=== PATIENT | female | born 1950 | race Caucasian/White ===

== ENCOUNTER → 2016-08-24 | Outpatient (CLI) | payer OTHER ==
[~2016-08-24] MED LIST: AMOX875T PO; ASPI81TA28 PO; ATOR10TA88 PO; BISO5TAB3 PO; LISI-461 PO
[2016-08-24 16:00] LABS: ALT/SGPT 28 U/L (12-78); BLOOD UREA NITROGEN 18 mg/dl (7-18); BUN/CREATININE RATIO 31.8 (10-20); CALCIUM 9.4 mg/dl (8.5-10.1); CARBON DIOXIDE 25 mmol/L (21-32); CREATININE 0.56 mg/dl (0.60-1.20); GLUCOSE 76 mg/dl (70-99)
[2016-08-24 16:56] LABS: CHLORIDE 108 mmol/L (98-107); POTASSIUM 3.9 mmol/L (3.5-5.1); SODIUM 145 mmol/L (136-145)
[2016-08-24 17:02] LABS: ALKALINE PHOSPHATASE 90 U/L (45-117); AST/SGOT 27 U/L (15-37)
== END | disposition home or self-care (01) ==
LOC: C.LAB 14:23
PROVIDERS: ATTEND Family Medicine
DX: E78.2 Mixed hyperlipidemia (principal)

== ENCOUNTER → 2017-01-03 | Outpatient (CLI) | payer OTHER ==
[2017-01-03 18:34] LABS: BASO % 0.5 %; BASO ABS # 0.04 K/uL (0-0.2); COMPLETE YES; EOS % 1.9 %; HEMATOCRIT 38.6 % (37-47); IG% 0.3 %; LYMPH ABS # 3.65 K/uL (1.2-3.4); MEAN CELL VOLUME 89.8 fL (80-100); MEAN CORPUSCULAR HEMOGLOBIN 29.8 pg (25-34); MEAN CORPUSCULAR HGB CONC 33.2 g/dl (32-36); MEAN PLATELET VOLUME 9.7 fL (7.4-10.4); MONO % 8.6 %; NEUT % 39.7 %; PLATELET COUNT 310 K/uL (130-400); WHITE BLOOD COUNT 7.45 K/uL (4.8-10.8)
[2017-01-03 19:16] LABS: ALT/SGPT 23 U/L (12-78); BLOOD UREA NITROGEN 13 mg/dl (7-18); BUN/CREATININE RATIO 25.6 (10-20); CALCIUM 9.3 mg/dl (8.5-10.1); CARBON DIOXIDE 26 mmol/L (21-32); CHLORIDE 109 mmol/L (98-107); CHOLESTEROL 143 mg/dl (0-200); CREATININE 0.52 mg/dl (0.60-1.20); GLUCOSE 89 mg/dl (70-99); POTASSIUM 3.9 mmol/L (3.5-5.1); SODIUM 143 mmol/L (136-145); TRIGLYCERIDES 139 mg/dl (0-150); VERY LOW DENSITY LIPOPROT CALC 28 mg/dl
[2017-01-03 19:20] LABS: ALKALINE PHOSPHATASE 84 U/L (45-117); AST/SGOT 25 U/L (15-37); HDL CHOLESTEROL 48 mg/dl; LDL CHOLESTEROL CALCULATED 67 mg/dl
== END | disposition home or self-care (01) ==
LOC: C.LABSPEC 17:22
PROVIDERS: ATTEND Family Medicine
DX: I10 Essential (primary) hypertension (principal)

== ENCOUNTER 2017-01-09 02:07 | Emergency (ER) | payer OTHER ==
[~2017-01-09] VITALS: Ht 152.4 cm; Wt 68.8 kg
[2017-01-09 02:20] VITALS: TEMP 36.8; Ht 152.4 cm; Wt 68.8 kg
[2017-01-09] MEDS ORDERED: AMOX875T PO (02:39)
[2017-01-09] MEDS ORDERED: RABIES IMMUNE GLOBULIN (HUMAN) 150 INTER.UNIT/ML 2 ML VIAL IM. ONE (02:45)
[2017-01-09] MEDS ORDERED: RABIES VACCINE (IMOVAX) HUMAN DIPL CELL 2.5 INTER.UNIT/ML SYR IM. ONE (02:45)
[2017-01-09 03:42] VITALS: BP 152/86; PULSE 62; O2SAT 96
--- NOTE | 2017-01-09 07:21 | EMERGENCY ROOM VISIT NOTE ---
History First contact with patient: 02:18 Chief Complaint: RABIES VACCINE Stated Complaint: RABIES VACCINE History of Present Illness The patient is a 66 year old female who presents to the Emergency Room for rabies postexposure prophylaxis. The patient family was attacked by a easley during daylight hours today. The family dog protect the family from the Easley, and the patient came into contact with the Easley's saliva. The patient was not directly bitten. She has not had fever or chills. She does not have other complaints. This episode has been previously discussed with the [facility] and the recommendation is the patient received the rabies post exposure prophylaxis series. Review of Systems More than 6 systems were reviewed and otherwise negative with the exception of history of present illness. Past Medical/Surgical History No pertinent chronic medical disease Family History No pertinent family history Social History Smoking Status: Never Smoker Housing Status: lives with family Current/Historical Medications Scheduled Amoxicillin & Pot Clavulanate (Augmentin 875-125 mg), 1 TAB PO BID Aspirin (Aspirin Ec), 81 MG PO DAILY Atorvastatin (Lipitor), 10 MG PO DAILY Bisoprolol Fumarate (Zebeta), 5 MG PO DAILY Lisinopril (Lisinopril), 10 MG PO DAILY Allergies Coded Allergies: No Known Allergies (Unverified , 01/09/17) Physical Exam Vital Signs Date Time Temp Pulse Resp B/P (MAP) Pulse Ox O2 Delivery O2 Flow Rate FiO2 01/09/17 03:42 62 20 152/86 96 01/09/17 02:20 36.8 59 20 152/86 96 Pain Rating (0-10): 0 Physical Exam VITALS: Vitals are noted on the nurse's note and reviewed by myself. Vital signs stable. GENERAL: Well-developed, well-nourished, white female, who is in no acute distress and resting comfortably. Patient is cooperative with the examination. HEART: Regular rate and rhythm without murmurs gallops or rubs. LUNGS: Clear to auscultation bilaterally without wheezes, rales or rhonchi. No retractions or accessory muscle use. SKIN: The skin was without rashes, erythema, edema, or bruising. Capillary reflex less than 2 seconds. Medical Decision & Procedures Medications Administered Medications (Trade) Dose Ordered Sig/Deuce Route Start Time Stop Time Status Last Admin Dose Admin Rabies Vaccine Human Diploid Cell (Imovax Rabies) 2.5 interunit ONCE ONCE IM. 01/09/17 02:45 01/09/17 02:46 DC 01/09/17 03:29 2.5 INTERUNIT Rabies Immune Globulin (Imogam Rabies Inj) 1,376 interunit ONCE ONCE IM. 01/09/17 02:45 01/09/17 02:46 DC 01/09/17 03:30 1,376 INTERUNIT ED Course Physical exam and history were performed. Nursing notes and EMR were reviewed. Patient appears to have a need for rabies postexposure prophylaxis. The patient was given Imovax and rabies IgG here in the department. She was monitored for greater than 20 minutes without any deterioration of her symptoms. Overall the patient appears well for discharge home. She was given discharge instructions as below and will continue the rabies series as indicated. The chart was completed utilizing [employer] Speech Voice Recognition Software. Grammatical errors, random word insertions, pronoun errors, and incomplete sentences are an occasional consequence of this system due to software limitations, ambient noise, and hardware issues. Any formal questions or concerns about the content, text, or information contained within the body of this dictation should be directly addressed to the provider for clarification. . Medical Decision Differential diagnosis includes, but is not limited to: Need for rabies post exposure prophylaxis, and others Impression Primary Impression: Need for post exposure prophylaxis for rabies Departure Information Dispostion Home / Self-Care Condition GOOD Forms WORK / SCHOOL INSTRUCTIONS, HOME CARE DOCUMENTATION FORM, IMPORTANT VISIT INFORMATION Patient Instructions Formerly [facility], [facility]–1983 Additional Instructions You were seen and evaluated today on an emergency basis only. This is not a substitute for, or an effort to provide, complete comprehensive medical care. It is not possible to recognize and treat all injuries or illnesses in a single emergency department visit. For this reason it is recommended that you followup in the emergency department as follows: 01/12/2017 01/16/2017 01/23/2017 You will require additional immunizations on these days. You are welcome to return to the emergency department anytime with new, worsening, or concerning symptoms.
[2017-01-23] MEDS ORDERED: ASPI81TA28 PO (02:39)
[2017-01-23] MEDS ORDERED: BISO5TAB3 PO (02:39)
[2017-01-23] MEDS ORDERED: ATOR10TA88 PO (02:39)
[2017-01-23] MEDS ORDERED: LISI-461 PO (02:39)
== END 2017-01-09 03:43 | disposition home or self-care (01) ==
LOC: C.EDB 02:08
DX: Z20.3 Contact with and (suspected) exposure to rabies (principal); Z79.899 Other long term (current) drug therapy; Z79.82 Long term (current) use of aspirin

== ENCOUNTER 2017-01-12 13:02 | Emergency (ER) | payer OTHER ==
[~2017-01-12] VITALS: Ht 152.4 cm; Wt 68.6 kg
[~2017-01-12 13:02] MED LIST changes: -ASPI81TA28 PO; -ATOR10TA88 PO; -BISO5TAB3 PO; -LISI-461 PO
[2017-01-12 13:04] VITALS: TEMP 36.8; Ht 152.4 cm; Wt 68.6 kg
[2017-01-12] MEDS ORDERED: RABIES VACCINE (IMOVAX) HUMAN DIPL CELL 2.5 INTER.UNIT/ML SYR IM. ONE (13:15)
--- NOTE | 2017-01-12 13:21 | EMERGENCY ROOM VISIT NOTE ---
ED Visit Note First contact with patient: 13:06 CHIEF COMPLAINT: Rabies prophylaxis HISTORY OF PRESENT ILLNESS: This 66 year old female patient presents to the emergency department ambulatory for their second rabies shot. The patient has not had any complications from the previous injections. They deny any other complaints. REVIEW OF SYSTEMS: A 6 system review of systems was completed with positives and pertinent negatives listed in the HPI. ALLERGIES: NKDA MEDICATIONS: Unchanged from previous PMH: Unchanged from previous visit. PHYSICAL EXAM: Vital Signs: Reviewed Nurse's notes, vital signs stable. GENERAL : This is a 66 year old female, in no acute distress, well-developed, well- nourished. HEAD: Atraumatic, without temporal or scalp tenderness. EYES: PERRLA, EOMI, no discharge or injection. SKIN: Normal. NEUROLOGICAL: Alert and cooperative. Sensory and motor functions grossly intact. EMERGENCY DEPARTMENT COURSE: I examined the patient. The patient was given Imovax 1ml IM. The patient was observed for 20 minutes with no reaction. The patient was discharged home in stable condition. DIAGNOSIS: Rabies prophylaxis DISCHARGE INSTRUCTIONS: Continue vaccination schedule as directed. Return for any complications. Current/Historical Medications Scheduled Amoxicillin & Pot Clavulanate (Augmentin 875-125 mg), 1 TAB PO BID Aspirin (Aspirin Ec), 81 MG PO DAILY Atorvastatin (Lipitor), 10 MG PO DAILY Bisoprolol Fumarate (Zebeta), 5 MG PO DAILY Lisinopril (Lisinopril), 10 MG PO DAILY Allergies Coded Allergies: No Known Allergies (Unverified , 01/12/17) Vital Signs Date Time Temp Pulse Resp B/P (MAP) Pulse Ox O2 Delivery O2 Flow Rate FiO2 01/12/17 13:53 61 131/71 96 01/12/17 13:04 36.8 66 18 128/80 94 Room Air Medications Administered Medications (Trade) Dose Ordered Sig/Deuce Route Start Time Stop Time Status Last Admin Dose Admin Rabies Vaccine Human Diploid Cell (Imovax Rabies) 2.5 interunit ONCE ONCE IM. 01/12/17 13:15 01/12/17 13:17 DC 01/12/17 13:33 2.5 INTERUNIT Departure Information Impression Primary Impression: Need for post exposure prophylaxis for rabies Dispostion Home / Self-Care Condition GOOD Referrals No Doctor, Assigned (PCP) Patient Instructions [facility] Additional Instructions Continue vaccination schedule as directed. Return for any complications.
[2017-01-12 13:53] VITALS: BP 131/71; PULSE 61; O2SAT 96
[2017-01-23] MEDS ORDERED: LISI-461 PO (02:39)
[2017-01-23] MEDS ORDERED: ASPI81TA28 PO (02:39)
[2017-01-23] MEDS ORDERED: ATOR10TA88 PO (02:39)
[2017-01-23] MEDS ORDERED: BISO5TAB3 PO (02:39)
== END 2017-01-12 13:53 | disposition home or self-care (01) ==
LOC: C.EDD 13:06
DX: Z20.3 Contact with and (suspected) exposure to rabies (principal); Z23 Encounter for immunization

== ENCOUNTER 2017-01-16 17:00 | Emergency (ER) | payer OTHER ==
[~2017-01-16] VITALS: Ht 162.6 cm; Wt 68.8 kg
[2017-01-16 17:01] VITALS: BP 113/76; PULSE 67; TEMP 36.6; O2SAT 97; Ht 162.6 cm; Wt 68.8 kg
[2017-01-16] MEDS ORDERED: RABIES VACCINE (IMOVAX) HUMAN DIPL CELL 2.5 INTER.UNIT/ML SYR IM. ONE (17:15)
--- NOTE | 2017-01-16 17:20 | EMERGENCY ROOM VISIT NOTE ---
ED Visit Note First contact with patient: 17:07 CHIEF COMPLAINT: Rabies prophylaxis HISTORY OF PRESENT ILLNESS: This 66-year-old patient presents to the emergency department ambulatory for their third rabies shot. The patient has not had any complications from the previous injections. They deny any other complaints. REVIEW OF SYSTEMS: A 6 system review of systems was completed with positives and pertinent negatives listed in the HPI. ALLERGIES: NKDA MEDICATIONS: Unchanged from previous PMH: Unchanged from previous visit. PHYSICAL EXAM: Vital Signs: Reviewed Nurse's notes, vital signs stable. GENERAL : This is a 66-year-old female, in no acute distress, well-developed, well- nourished. HEAD: Atraumatic, without temporal or scalp tenderness. EYES: PERRLA, EOMI, no discharge or injection. SKIN: Normal. NEUROLOGICAL: Alert and cooperative. Sensory and motor functions grossly intact. EMERGENCY DEPARTMENT COURSE: I examined the patient. The patient was given Imovax 1ml IM. The patient was observed for 20 minutes with no reaction. The patient was discharged home in stable condition. DIAGNOSIS: Rabies prophylaxis DISCHARGE INSTRUCTIONS: Continue vaccination schedule as directed. Return for any complications. Current/Historical Medications Scheduled Amoxicillin & Pot Clavulanate (Augmentin 875-125 mg), 1 TAB PO BID Aspirin (Aspirin Ec), 81 MG PO DAILY Atorvastatin (Lipitor), 10 MG PO DAILY Bisoprolol Fumarate (Zebeta), 5 MG PO DAILY Lisinopril (Lisinopril), 10 MG PO DAILY Allergies Coded Allergies: No Known Allergies (Unverified , 01/16/17) Vital Signs Date Time Temp Pulse Resp B/P (MAP) Pulse Ox O2 Delivery O2 Flow Rate FiO2 01/16/17 17:01 36.6 67 18 113/76 97 Room Air Medications Administered Medications (Trade) Dose Ordered Sig/Deuce Route Start Time Stop Time Status Last Admin Dose Admin Rabies Vaccine Human Diploid Cell (Imovax Rabies) 2.5 interunit ONCE ONCE IM. 01/16/17 17:15 01/16/17 17:16 DC 01/16/17 17:36 2.5 INTERUNIT Departure Information Impression Primary Impression: Need for post exposure prophylaxis for rabies Dispostion Home / Self-Care Condition GOOD Referrals No Doctor, Assigned (PCP) Patient Instructions [facility] Additional Instructions Return in 7 days for your last shot
[2017-01-23] MEDS ORDERED: ASPI81TA28 PO (02:39)
[2017-01-23] MEDS ORDERED: LISI-461 PO (02:39)
[2017-01-23] MEDS ORDERED: BISO5TAB3 PO (02:39)
[2017-01-23] MEDS ORDERED: ATOR10TA88 PO (02:39)
== END 2017-01-16 17:49 | disposition home or self-care (01) ==
LOC: C.EDB 17:00 → C.EDD 17:49
DX: Z20.3 Contact with and (suspected) exposure to rabies (principal); Z23 Encounter for immunization; Z79.82 Long term (current) use of aspirin; Z79.899 Other long term (current) drug therapy

== ENCOUNTER 2017-01-23 17:19 | Emergency (ER) | payer OTHER ==
[~2017-01-23] VITALS: Ht 152.4 cm; Wt 36.4 kg
[~2017-01-23 17:19] MED LIST changes: +ASPI81TA28 PO; +ATOR10TA88 PO; +BISO5TAB3 PO; +LISI-461 PO
[2017-01-23 17:24] VITALS: BP 127/79; TEMP 36.8; Ht 152.4 cm; Wt 36.4 kg
[2017-01-23] MEDS ORDERED: RABIES VACCINE (IMOVAX) HUMAN DIPL CELL 2.5 INTER.UNIT/ML SYR IM. ONE (17:30)
[2017-01-23 18:56] VITALS: PULSE 67; O2SAT 93
--- NOTE | 2017-01-23 19:09 | EMERGENCY ROOM VISIT NOTE ---
History First contact with patient: 17:28 Chief Complaint: RABIES VACCINE REPEAT VISIT Stated Complaint: 4TH RABIES VACCINE History of Present Illness The patient is a 66 year old female who presents to the Emergency Room for a fourth and final Imovax injection. The patient has had no adverse reactions to the prior injections. Review of Systems 6 system review was performed and was negative except for pertinent positives and negatives as indicated in history of present illness Past Medical/Surgical History Well documented on previous visits Family History Unremarkable Social History Smoking Status: Never Smoker Housing Status: lives with family Current/Historical Medications Scheduled Aspirin (Aspirin Ec), 81 MG PO DAILY Atorvastatin (Lipitor), 10 MG PO DAILY Bisoprolol Fumarate (Zebeta), 5 MG PO DAILY Lisinopril (Lisinopril), 10 MG PO DAILY Physical Exam Vital Signs Date Time Temp Pulse Resp B/P (MAP) Pulse Ox O2 Delivery O2 Flow Rate FiO2 01/23/17 18:56 67 93 01/23/17 17:24 36.8 66 17 127/79 97 Room Air Pain Rating (0-10): 0 Physical Exam CONSTITUTIONAL: Healthy and well nourished. HEENT: Normocephalic, atraumatic. Pupils equal, round and reactive. NECK: Full active range of motion without discomfort. INTEGUMENTARY: No rash or other significant dermatologic conditions noted. NEUROLOGIC: No focal neurologic deficits noted. Medical Decision & Procedures Medications Administered Medications (Trade) Dose Ordered Sig/Deuce Route Start Time Stop Time Status Last Admin Dose Admin Rabies Vaccine Human Diploid Cell (Imovax Rabies) 2.5 interunit ONCE ONCE IM. 01/23/17 17:30 01/23/17 17:31 DC 01/23/17 18:05 2.5 INTERUNIT ED Course Imovax was administered IM. The patient was instructed that if she has any further potential rabies exposure in the future, she should advise her healthcare provider that she has already undergone this rabies immunization series. The patient was happy with plan of care, and denied any pain at the time of discharge. Medical Decision Impression Primary Impression: Need for post exposure prophylaxis for rabies Departure Information Dispostion Home / Self-Care Referrals No Doctor, Assigned (PCP) Forms HOME CARE DOCUMENTATION FORM, IMPORTANT VISIT INFORMATION Patient Instructions My [facility] Additional Instructions If you have any potential rabies exposure in the future, advise your healthcare provider that you have undergone the complete rabies immunization series.
== END 2017-01-23 18:57 | disposition home or self-care (01) ==
LOC: C.EDB 17:20 → C.EDD 18:57
DX: Z20.3 Contact with and (suspected) exposure to rabies (principal); Z23 Encounter for immunization; Z79.82 Long term (current) use of aspirin; Z79.899 Other long term (current) drug therapy

== ENCOUNTER → 2017-02-05 | Outpatient (CLI) | payer OTHER ==
[~2017-02-05] MED LIST changes: -AMOX875T PO
[2017-02-05 18:32] LABS: HEMATOCRIT 38.1 % (37-47); MEAN CELL VOLUME 90.5 fL (80-100); MEAN CORPUSCULAR HEMOGLOBIN 30.4 pg (25-34); MEAN CORPUSCULAR HGB CONC 33.6 g/dl (32-36); MEAN PLATELET VOLUME 10.3 fL (7.4-10.4); PLATELET COUNT 296 K/uL (130-400); RED BLOOD COUNT 4.21 M/uL (4.2-5.4)
[2017-02-05 18:40] LABS: ALT/SGPT 26 U/L (12-78); BLOOD UREA NITROGEN 17 mg/dl (7-18); BUN/CREATININE RATIO 24.2 (10-20); CALCIUM 9.7 mg/dl (8.5-10.1); CARBON DIOXIDE 28 mmol/L (21-32); CHLORIDE 107 mmol/L (98-107); CREATININE 0.69 mg/dl (0.60-1.20); GLUCOSE 95 mg/dl (70-99); POTASSIUM 4.1 mmol/L (3.5-5.1); SODIUM 141 mmol/L (136-145)
[2017-02-05 18:43] LABS: ALKALINE PHOSPHATASE 91 U/L (45-117); AST/SGOT 25 U/L (15-37)
[2017-02-05 19:43] LABS: COMPLETE YES; EOSINOPHIL % 2.7 %; LYMPH ABS # 1.97 K/uL (1.2-3.4); LYMPHOCYTE % 28.6 %; NEUTROPHILS % 37.5 %; VARIANT LYM ABS # 1.48 K/uL; VARIANT LYMPHOCYTE % 21.4 %
== END | disposition home or self-care (01) ==
LOC: C.LABSPEC 10:48
PROVIDERS: ATTEND Family Medicine
DX: M54.5 Low back pain (principal)

== ENCOUNTER → 2017-02-21 | Outpatient (CLI) | payer OTHER ==
[2017-02-21 18:01] LABS: BASO % 0.6 %; BASO ABS # 0.05 K/uL (0-0.2); COMPLETE YES; EOS % 1.5 %; HEMATOCRIT 38.1 % (37-47); IG% 0.1 %; LYMPH % 44.2 %; LYMPH ABS # 3.46 K/uL (1.2-3.4); MEAN CELL VOLUME 91.1 fL (80-100); MEAN CORPUSCULAR HEMOGLOBIN 31.6 pg (25-34); MEAN CORPUSCULAR HGB CONC 34.6 g/dl (32-36); MEAN PLATELET VOLUME 9.7 fL (7.4-10.4); MONO % 8.3 %; NEUT % 45.3 %; PLATELET COUNT 276 K/uL (130-400); RED BLOOD COUNT 4.18 M/uL (4.2-5.4); WHITE BLOOD COUNT 7.82 K/uL (4.8-10.8)
[2017-02-21 18:11] LABS: ALT/SGPT 26 U/L (12-78); AST/SGOT 29 U/L (15-37); BLOOD UREA NITROGEN 14 mg/dl (7-18); BUN/CREATININE RATIO 25.1 (10-20); CALCIUM 9.7 mg/dl (8.5-10.1); CARBON DIOXIDE 28 mmol/L (21-32); CHLORIDE 109 mmol/L (98-107); CREATININE 0.57 mg/dl (0.60-1.20); GLUCOSE 84 mg/dl (70-99); SODIUM 142 mmol/L (136-145)
[2017-02-21 18:16] LABS: ALKALINE PHOSPHATASE 88 U/L (45-117)
== END | disposition home or self-care (01) ==
LOC: C.LABSPEC 11:03
PROVIDERS: ATTEND Family Medicine
DX: I10 Essential (primary) hypertension (principal)

== ENCOUNTER 2024-03-22 12:42 | Inpatient (IN) ==
[2024-03-22 13:26] LABS: Basophils # (auto) 0.04 K/uL (0.00-0.20); Basophils % (auto) 0.5 %; Eosinophils # (auto) 0.03 K/uL (0.00-0.50); Eosinophils % (auto) 0.4 %; Hemoglobin 12.6 g/dl (12.0-16.0); Immature Granulocytes # (auto) 0.02 K/uL (0.01-0.20); Immature Granulocytes % (auto) 0.3 %; Mean Corpuscular Hemoglobin 30.4 pg (25.0-34.0); Mean Corpuscular Hgb Conc 34.1 g/dL (32.0-36.0); Mean Corpuscular Volume 89.4 fL (80.0-100.0); Mean Platelet Volume 9.5 fL (9.4-12.4); Monocytes # (auto) 0.48 K/uL (0.11-0.59); Monocytes % (auto) 6.1 %; Neutrophils # (auto) 5.05 K/uL (1.40-6.50); Neutrophils % (auto) 63.7 %; Platelet Count 260 K/uL (130-400); RDW Coefficient of Variation 12.8 % (11.5-14.5); RDW Standard Deviation 41.8 fL (36.4-46.3); Red Blood Count 4.14 M/uL (4.20-5.40); White Blood Count 7.92 K/ul (4.8-10.8)
[2024-03-22 13:34] LABS: Albumin Globulin Ratio 1.3 (0.9-2); Albumin Level 4.3 gm/dl (3.4-5.0); Bilirubin,Total 1.2 mg/dl (0.2-1.0); Calcium 9.6 mg/dl (8.6-10.3); Creatinine Clr Calc Pharmacy 74.4 ml/min; Est GFR (African American) 103.3 ml/min; Est GFR (Non-African American) 89.2 ml/min; Globulin 3.2 gm/dl (2.5-4.0); Potassium 3.8 mmol/L (3.5-5.1); Total Protein 7.5 gm/dl (6.0-8.3)
--- NOTE | 2024-03-22 14:17 | Emergency Department Note ---
Impression & Plan Colitis ADMIT ED Provider Note HPI: History obtained from patient and patient's son at the bedside. The patient is a 73-year-old female who presents the emergency department with chief complaint of diarrhea. Patient states that earlier this morning she developed some abdominal cramping and had several episodes of diarrhea. Later in the morning the patient had some bloody diarrhea. She discussed the symptoms with her son and he brought her to the ER to be assessed. Of note, the patient speaks primarily [place] and her son is serving as the bridal sales consultant. Patient currently does not have any abdominal pain. On arrival here to the ED the patient is hemodynamically stable, she otherwise appears to be in no acute distress. ROS: - Per HPI Differential Diagnosis: Acute colitis, viral gastroenteritis, ischemic colitis, diverticulitis flare, hemorrhagic diarrhea secondary to other pathogens, amongst other potential pathologies. *Outpatient medications and allergy history reviewed. PE: General: Alert HEENT: Normocephalic, trachea midline Eyes: Extraocular eye movement is intact, no scleral erythema Pulmonary: Clear to auscultation bilaterally, no wheezing Cardio: Regular rate and rhythm GI: Abdomen is soft to palpation : No suprapubic tenderness MSK: No evidence of trauma or malformation of the extremities, no edema Skin: No evidence of rash Neuro: Alert, no focal deficits Psychiatric: Cooperative INDEPENDENT INTERPRETATIONS: fws faculty assistant: (As interpreted by myself): - An order was placed for continuous cardiac monitoring - Patient was noted to be in sinus rhythm with a rate of 90 Interventions provided in ED: -IV fluid bolus, IV Zosyn Medical Decision Making: IV was established and lab work obtained, patient was placed on jack spinner. Lab work shows no leukocytosis, hemoglobin is stable at 12.6, platelet count is normal, CMP does not show any evidence of any critical findings, urinalysis shows 3+ blood but no obvious evidence of infection, will send for culture. Patient denies any dysuria. Viral panel testing was obtained for stool culture and is negative. CT imaging of the abdomen pelvis without contrast was obtained (patient has a contrast allergy) and that shows concern for possible ischemic colitis. Given this blood culture was drawn and the patient was started on IV Zosyn. Called stool testing at the bedside is positive. I discussed these findings with the patient and her son at the bedside, at this time given possible ischemic colitis admission was recommended and they are in agreement. Case was discussed with the on-call hospitalist, Dr. Kimbrough, and the patient was placed for admission in stable condition. Consultants/Discussions held with other healthcare providers: -Hospitalist, Dr. Kimbrough Disposition discussion held by myself with: -Patient and patient's son at the bedside Diagnosis: 1. Acute colitis 2. Occult positive stool 3. 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 Encounter for pre-operative examination Orthostatic hypotension hx-"has not happened at all recently" HTN (hypertension) (Acute) Medical History Aortic aneurysm "told it was small, only 5mm"; f/u PSH cardio HTN (hypertension) Orthostatic hypotension hx-"has not happened at all recently" Surgical History History of cataract surgery Family History Other Family history unknown Social History Smoking Status: Never smoker Second Hand Exposure: No; Do You Dip or Chew Tobacco: No; Hx Alcohol Use: No Hx Substance Use: No Preferred Language: [place] Communication Ability: Effective Communication Ability Comment: Requires hourly sign language interpreter Communication Tools: IPad and Language Line Set Up Mechanic Set Up Mechanic Required: Yes Beliefs That Will Affect Care: None marital status: / Current Living Situation: Family current occupational status: retired How many Children do You have: 1 Feels Safe at Home: Yes Assistive Devices: None Allergies Allergies Allergy/AdvReac Type Severity Reaction Status Date / Time Iodinated Contrast Media Allergy nausea and Verified 01/29/23 08:59 vomiting Home Meds Home Medications Medication Instructions Recorded Confirmed atorvastatin 10 mg tablet 10 mg PO HS 02/17/20 03/22/24 bisoprolol fumarate 5 mg tablet 5 mg PO QAM 02/17/20 03/22/24 lisinopril 10 mg tablet 10 mg PO HS 07/28/21 03/22/24 aspirin 81 mg capsule 81 mg PO DAILY 01/04/23 03/22/24 Results & Data (ED) Vital Signs Vital Signs - 24 hr 03/22/24 12:51 Temperature 36.7 C Temperature Source Temporal Artery Scan Pulse Rate 85 Respiratory Rate 20 Respiratory Effort / Characteristics Non-Labored Spontaneous Respiratory Depth Normal Blood Pressure 144/87 H Blood Pressure Mean 106 Pulse Oximetry 97 Oxygen Delivery Method Room Air Sepsis Recent Fever Within 48 Hours No Sepsis New/Unexplained Change in Mental Status N/A Sepsis Action Taken by Nursing No Action Required Laboratory Data 03/22/24 13:05 03/22/24 13:05 Lab Results 03/22/24 03/22/24 03/22/24 Range/Units 13:05 13:50 13:56 WBC 7.92 (4.8-10.8) K/ul RBC 4.14 L (4.20-5.40) M/uL Hgb 12.6 (12.0-16.0) g/dl Hct 37.0 (37.0-47.0) % MCV 89.4 (80.0-100.0) fL MCH 30.4 (25.0-34.0) pg MCHC 34.1 (32.0-36.0) g/dL RDW Std Deviation 41.8 (36.4-46.3) fL RDW Coeff of Bradley 12.8 (11.5-14.5) % Plt Count 260 (130-400) K/uL MPV 9.5 (9.4-12.4) fL Immature Gran % (Auto) 0.3 % Neut % (Auto) 63.7 % Lymph % (Auto) 29.0 % [place] % (Auto) 6.1 % Eos % (Auto) 0.4 % Baso % (Auto) 0.5 % Neut # (Auto) 5.05 (1.40-6.50) K/uL Lymph # (Auto) 2.30 (1.20-3.40) K/uL [place] # (Auto) 0.48 (0.11-0.59) K/uL Eos # (Auto) 0.03 (0.00-0.50) K/uL Baso # (Auto) 0.04 (0.00-0.20) K/uL Immature Gran # (Auto) 0.02 (0.01-0.20) K/uL Sodium 137 (136-145) mmol/L Potassium 3.8 (3.5-5.1) mmol/L Chloride 105 (98-107) mmol/L Carbon Dioxide 24 (21-32) mmol/L Anion Gap 8 (3-11) BUN 18 (6-23) mg/dl Creatinine 0.60 (0.6-1.2) mg/dl Est Cr Clr Drug Dosing 74.4 ml/min Est GFR ( Amer) 103.3 ml/min Est GFR (Non-Af Amer) 89.2 ml/min BUN/Creatinine Ratio 30.0 H (10-20) Glucose 104 H (70-99(Fasting)) mg/dl Calcium 9.6 (8.6-10.3) mg/dl Total Bilirubin 1.2 H (0.2-1.0) mg/dl AST 24 (13-39) U/L ALT 14 (7-52) U/L Alkaline Phosphatase 75 (34-104) U/L Total Protein 7.5 (6.0-8.3) gm/dl Albumin 4.3 (3.4-5.0) gm/dl Globulin 3.2 (2.5-4.0) gm/dl Albumin/Globulin Ratio 1.3 (0.9-2) Lipase 13 (11-82) U/L Urine Color Yellow Urine Appearance Clear (Clear) Urine pH 5.5 (4.5-7.5) Ur Specific [place] 1.011 (1.000-1.030) Urine Protein Negative (Negative) Urine Glucose (UA) Negative (Negative) Urine Ketones Negative (Negative) Urine Blood 3+ H (Negative) Urine Nitrite Negative (Negative) Urine Bilirubin Negative (Negative) Urine Urobilinogen Negative (Negative) Ur Leukocyte Esterase 1+ H (Negative) Urine WBC (Auto) 6-10 H (0-5) /hpf Urine RBC (Auto) >20 H (0-2) /hpf U Hyaline Cast (Auto) 0-2 (0-2) /lpf U Epithel Cells (Auto) 0-2 (0-2) /hpf Urine Bacteria (Auto) None Seen (None Seen) Stl C. cayetanensis PCR Not Detected (NotDetected) Stool Rotavirus A PCR Not Detected (NotDetected) Stl Adenov F 40/41 PCR Not Detected (NotDetected) Stool Astrovirus (PCR) Not Detected (NotDetected) Stool Campylobacter PCR Not Detected (NotDetected) Stl C. diff Tox B Gene Negative Cdiff Gene (Neg) Stool Cryptosporidium PCR Not Detected (NotDetected) Stl E.coli Shiga Tox PCR Not Detected (NotDetected) Stl Enterotoxigenic E PCR Not Detected (NotDetected) Stool EPEC (PCR) Not Detected (NotDetected) Stool EAEC (PCR) Not Detected (NotDetected) Stl E. histolytica PCR Not Detected (NotDetected) Stool Giardia Lamblia PCR Not Detected (NotDetected) Stool Salmonella PCR Not Detected (NotDetected) Stool Sapovirus (PCR) Not Detected (NotDetected) Stl P. shigelloides PCR Not Detected (NotDetected) Stl Shigella/EIEC PCR Not Detected (NotDetected) St Y.enterocolitica PCR Not Detected (NotDetected) Stool Vibrio (PCR) Not Detected (NotDetected) Stl Vibrio cholerae PCR Not Detected (NotDetected) Stl Norovirus GI/GII PCR Not Detected (NotDetected) Administered Medications Discontinued Medications Sodium Chloride (Nss) 1,000 mls @ 999 mls/hr IV .Q1H1M ONE Stop: 03/22/24 15:10 Last Admin: 03/22/24 14:38 Dose: 999 mls/hr Documented By: [facility] Imaging Data Radiologist's Impression: Abdomen/Pelvis CT 03/22/24 14:10 CT abd pelvis wo con CLINICAL HISTORY: bloody diarrhea TECHNIQUE: Helical axial images of the abdomen and pelvis were obtained. Automated dose lowering techniques and/or adjustment according to patient size were utilized for this exam. This exam was performed without intravenous contrast. CT DOSE: 1076.31 mGy.cm COMPARISON: None available at the time of this dictation. FINDINGS: Lower chest: No acute abnormality. Liver: Borderline hepatic steatosis. Gallbladder and biliary tree: No calcified gallstones. Normal caliber wall. No intra- or extrahepatic biliary ductal dilation. Pancreas: Unremarkable, no focal lesions. Spleen: Unremarkable. Adrenals: Unremarkable. Kidneys and ureters: Renal cysts are seen. Bladder: Unremarkable. Reproductive organs: Unremarkable. Bowel: There are numerous sigmoid diverticula. There is uniform thickening of the descending and sigmoid colonic owen. There is surrounding fat stranding. Lymph nodes Retroperitoneal: Unremarkable. Pelvic: Unremarkable. Mesenteric: Unremarkable. Peritoneum: There is mild vascular prominence about the descending and sigmoid colon without evidence of perforation or pneumoperitoneum. Vessels: Atherosclerotic calcifications are seen. Abdominal wall: Unremarkable. Bones: Degenerative changes in the visualized spine. IMPRESSION: Thickening of the descending colon may represent ischemic colitis in the inferior mesenteric artery distribution or infectious/inflammatory colitis. ACT 112: Negative or not required by law. Electronically signed by: Nolan Walton M.D. 03/22/2024 2:51 PM Discharge Plan Visit Data Chief Complaint: Diarrhea Stated Complaint: DIARRHEA, ABD PAIN ED Provider: Matthias Ni Discharge Problem: Colitis Forms Stand Alone Forms: My [facility] [place] [facility] Prescriptions Prescriptions: No Action atorvastatin 10 mg tablet 10 mg PO HS bisoprolol fumarate 5 mg tablet 5 mg PO QAM lisinopril 10 mg tablet 10 mg PO HS aspirin 81 mg Capsule 81 mg PO DAILY Rx Instructions: 03/22/21:otc unable to verify Referrals Referrals: Santana Mcnair [Primary Care Provider] -
[2024-03-22 14:21] LABS: Appearance Urine Clear (Clear); Bacteria Urine Automated None Seen (None Seen); Bilirubin Urine Negative (Negative); Blood Urine 3+ (Negative); Cast Urine Automated 0-2 /lpf (0-2); Color Urine Yellow; Epithelial Cell Urine Auto 0-2 /hpf (0-2); Glucose Urine UA Negative (Negative); Ketones Urine Negative (Negative); Leukocyte Esterase Urine 1+ (Negative); Nitrite Urine Negative (Negative); Protein Urine Negative (Negative); RBC Urine Automated >20 /hpf (0-2); Specific Gravity Urine 1.011 (1.000-1.030); Urobilinogen Urine Negative (Negative); pH Urine 5.5 (4.5-7.5)
[2024-03-22] MEDS: SODIUM CHLORIDE 0.9% 1,000 ML IV ONE (14:38)
--- NOTE | 2024-03-22 14:53 | CT Scan Report ---
CT abd pelvis wo con CLINICAL HISTORY: bloody diarrhea TECHNIQUE: Helical axial images of the abdomen and pelvis were obtained. Automated dose lowering tech niques and/or adjustment according to patient size were utilized for this exam. This exam was perfor med without intravenous contrast. CT DOSE: 1076.31 mGy.cm COMPARISON: None available at the time of this dictation. FINDINGS: Lower chest: No acute abnormality. Liver: Borderline hepatic steatosis. Gallbladder and biliary tree: No calcified gallstones. Normal caliber wall. No intra- or extrahepatic biliary ductal dilation. Pancreas: Unremarkable, no focal lesions. Spleen: Unremarkable. Adrenals: Unremarkable. Kidneys and ureters: Renal cysts are seen. Bladder: Unremarkable. Reproductive organs: Unremarkable. Bowel: There are numerous sigmoid diverticula. There is uniform thickening of the descending and sigm oid colonic owen. There is surrounding fat stranding. Lymph nodes Retroperitoneal: Unremarkable. Pelvic: Unremarkable. Mesenteric: Unremarkable. Peritoneum: There is mild vascular prominence about the descending and sigmoid colon without evidence of perforation or pneumoperitoneum. Vessels: Atherosclerotic calcifications are seen. Abdominal wall: Unremarkable. Bones: Degenerative changes in the visualized spine. IMPRESSION: Thickening of the descending colon may represent ischemic colitis in the inferior mesenteric artery d istribution or infectious/inflammatory colitis. ACT 112: Negative or not required by law. Electronically signed by: Nolan Walton M.D. 03/22/2024 2:51 PM
[2024-03-22 15:47] LABS: Adenovirus F 40/41 PCR Not Detected (NotDetected); Astrovirus PCR Not Detected (NotDetected); Campylobacter PCR Not Detected (NotDetected); Cryptosporidium PCR Not Detected (NotDetected); Cyclospora cayetanensis PCR Not Detected (NotDetected); Entamoeba histolytica PCR Not Detected (NotDetected); Enteroaggregative E.coli(EAEC) Not Detected (NotDetected); Enteropathogenic E.coli (EPEC) Not Detected (NotDetected); Enterotoxigenic E.coli (ETEC) Not Detected (NotDetected); Giardia lamblia PCR Not Detected (NotDetected); Norovirus GI/GII PCR Not Detected (NotDetected); Plesiomonas shigelloides PCR Not Detected (NotDetected); Rotavirus A PCR Not Detected (NotDetected); Salmonella PCR Not Detected (NotDetected); Sapovirus PCR Not Detected (NotDetected); Shiga-like Toxin E.coli (STEC) Not Detected (NotDetected); Shigella/Enteroinvasive E.coli Not Detected (NotDetected); Vibrio cholerae PCR Not Detected (NotDetected); Vibrio species PCR Not Detected (NotDetected); Yersinia enterocolitica PCR Not Detected (NotDetected)
[2024-03-22] MEDS: SODIUM CHLORIDE 0.9% 1,000 ML IV STA (16:02)
[2024-03-22] MEDS: PIPERACILLIN/TAZOBACTAM 4.5 GM/100 ML BAG IV ONE (16:02)
--- NOTE | 2024-03-22 17:07 | History & Physical Report ---
Date of Service March 22, 2024 Assessment & Plan (1) Colitis: Plan: - CTA/P: descending colon possibly representing ischemic colitis and inferior MCA distribution versus infectious/inflammatory colitis. CT was performed in ER without contrast due to patient reports of severe contrast allergy. Stool bio fire is negative. Patient attributes initial symptoms to suspecting that she had bad yogurt, cramping and diarrhea started with normal bowel movements and then included diarrhea that then continued with blood later in the day. Improved following fluids, pain resolved Empiric Zosyn continued for GI coverage Patient is not septic or hemodynamically unstable. She is not hypotensive or tachycardic. She does not have a leukocytosis. She is not anemic. BUN is not markedly elevated. Lactate minimally elevated, repeat pending. She has no high risk features on reassessment Will continue observation, supportive care with IV antibiotics and fluids. Anticoagulation not recommended at time of admission. GI consulted No history of colorectal cancer in patient or her family. She has never had a colonoscopy. She is not anemic or microcytic. (2) HTN (hypertension): Plan: Atorvastatin continued. Lisinopril held. (3) Aortic aneurysm: Plan: Followed as outpatient. No chest pain/shoulder blade pain. She reports that she had an echo of this around 6 months ago which was similar to her last echo and did not show enlargement. Last review of 2022 echo with dilated aortic root 3.8 cm, stable compared to prior Plan Stable issues: Pulmonary nodule: Follows with pulmonary as outpatient. Right midlung nodule density. No ongoing need for screening, low risk, no tobacco history. May continue to follow-up as needed DVT prophylaxis: SCDs, Lovenox held for hematochezia Disposition: Medical/surgical Diet: N.p.o. History of Present Illness Primary Care Provider: Santana Mcnair Lolis is a 73-year-old female with past medical history of hypertension, orthostatic hypotension, hearing loss, pulmonary nodules, and colitis who is exclusively Icelandic speaker with whom history is collected with the assistance of video translation services who presents with cramping and diarrhea of 1 day. Bloody diarrhea since yesterday. Lolis reports that she was in her usual state of health until earlier this afternoon. She reports she had cramping earlier this afternoon which she attributes to possibly eating some bad yogurt. After that she had a couple of episodes of diarrhea which had bright red blood. No melena. She denied chest pain, chest pressure, lightheadedness, dizziness, syncope, presyncope she does feel that the diarrhea is improving, last bowel movement had a little bit of bright red blood in it. Her pain has completely resolved after getting IV fluids. She is hungry and slightly thirsty. She has not had fever chills or sweats. She reports she has a past medical history of high blood pressure, high heart rate treated with aspirin/atorvastatin/isinopril/bisoprolol. She did take her bisoprolol this morning, she takes her other medications in the evening. She currently feels normal and at her usual state of health, but is concerned about the bleeding. She does not use tobacco products, and does not drink alcohol. Full code. No other questions at bedside. Allergies Allergy/AdvReac Type Severity Reaction Status Date / Time Iodinated Contrast Media Allergy nausea and Verified 01/29/23 08:59 vomiting Home Medications Medication Instructions Recorded Confirmed Type atorvastatin 10 mg tablet 10 mg PO HS 02/17/20 03/22/24 History bisoprolol fumarate 5 mg tablet 5 mg PO QA 02/17/20 03/22/24 History lisinopril 10 mg tablet 10 mg PO HS 07/28/21 03/22/24 History aspirin 81 mg capsule 81 mg PO DAILY 01/04/23 03/22/24 History Past Med/Surg History Problem List (Updated 03/22/24 @ 15:54 by Matthias Ni DO) Colitis (Acute) Dyspnea Pulmonary nodule Need for post exposure prophylaxis for rabies (Acute) Perforation of right tympanic membrane due to otitis media 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 Encounter for pre-operative examination Orthostatic hypotension hx-"has not happened at all recently" HTN (hypertension) (Acute) Medical History Aortic aneurysm "told it was small, only 5mm"; f/u PSH cardio HTN (hypertension) Orthostatic hypotension hx-"has not happened at all recently" Surgical History History of cataract surgery Family History Other Family history unknown Social History Smoking Status: Never smoker Second Hand Exposure: No; Do You Dip or Chew Tobacco: No; Hx Alcohol Use: No Hx Substance Use: No Preferred Language: Icelandic Communication Ability: Effective Communication Ability Comment: Requires tipple engineer Communication Tools: IPad and Language Line Farmworker Farmworker Required: Yes Beliefs That Will Affect Care: None marital status: / Current Living Situation: Family current occupational status: retired How many Children do You have: 1 Feels Safe at Home: Yes Assistive Devices: None Physical Exam Physical Exam: General: A&Ox3. NAD. Cooperative. HEENT: Atraumatic, normocephalic. Pulm: CTAB A&P. -wheezes, -rales, -rhonchi. Symmetrical chest rise. No increased work of breathing. No respiratory distress. Cardiac: RRR, -mrg. Radial pulses intact and symmetrical. Abdominal: Nontender, nondistended, soft. BS present. Results & Data Results & Data Vital Signs (Past 12 Hours) Vital Signs Temp Pulse Pulse Resp BP BP Pulse Ox 03/22/24 16:09 74 18 134/69 95 03/22/24 12:51 36.7 C 85 20 144/87 H 97 O2 Del Method 03/22/24 16:09 Room Air 03/22/24 12:51 Room Air PG Care Time/CCT Total # of Minutes Spent Total Time Spent with Patient: Total time spent is greater than 50% in coordination of care (as documented) at patient's floor/unit and/or counseling patient: Coding Level of Care Code 96593 INT INP/OBS CARE 2/55MIN Diagnoses Colitis K52.9 HTN (hypertension) I10 Hypertension type: unspecified Aortic aneurysm I71.9 (2) HTN (hypertension) Hypertension type: unspecified Qualified Code(s): I10 - Essential (primary) hypertension
[2024-03-22] MEDS ORDERED: ACETAMINOPHEN 325 MG TAB PO PRN (21:14)
[2024-03-22] MEDS: LACTATED RINGER'S 1,000 ML IV SCH (21:21)
[2024-03-22] MEDS: ATORVASTATIN 10 MG TAB PO SCH (22:17)
[2024-03-22] MEDS: PIPERACILLIN/TAZOBACTAM 4.5 GM/100 ML BAG IV SCH (22:18)
[2024-03-23 07:48] LABS: BUN Creatinine Ratio 21.8 (10-20); Calcium 8.7 mg/dl (8.6-10.3); Creatinine Clr Calc Pharmacy 81.6 ml/min; Est GFR (African American) 106.3 ml/min; Est GFR (Non-African American) 91.8 ml/min; Potassium 3.8 mmol/L (3.5-5.1)
[2024-03-23 07:51] LABS: Basophils # (auto) 0.03 K/uL (0.00-0.20); Basophils % (auto) 0.6 %; Eosinophils % (auto) 3.8 %; Hematocrit (blood only) 33.8 % (37.0-47.0); Immature Granulocytes # (auto) 0.02 K/uL (0.01-0.20); Immature Granulocytes % (auto) 0.4 %; Lymphocytes # (auto) 1.83 K/uL (1.20-3.40); Lymphocytes % (auto) 34.5 %; Mean Corpuscular Hemoglobin 29.6 pg (25.0-34.0); Mean Corpuscular Hgb Conc 32.5 g/dL (32.0-36.0); Mean Corpuscular Volume 91.1 fL (80.0-100.0); Mean Platelet Volume 9.3 fL (9.4-12.4); Monocytes # (auto) 0.56 K/uL (0.11-0.59); Monocytes % (auto) 10.6 %; Neutrophils # (auto) 2.66 K/uL (1.40-6.50); Neutrophils % (auto) 50.1 %; Platelet Count 194 K/uL (130-400); RDW Coefficient of Variation 12.9 % (11.5-14.5); RDW Standard Deviation 42.3 fL (36.4-46.3); Red Blood Count 3.71 M/uL (4.20-5.40)
[2024-03-23] MEDS: BISOPROLOL FUMARATE 5 MG TAB PO SCH (09:08)
--- NOTE | 2024-03-23 11:10 | Gastrointestinal Consultation ---
Date of Consultation March 23, 2024 Assessment & Plan (1) Ischemic colitis: -Continue IV Zosyn while admitted. -Continue to monitor for worsening bleeding or other GI symptoms. -If improving, consider colonoscopy in 6-8 weeks as an outpatient. Supervising Physician Co-Signing Physician Notes I saw and examined this patient with our nurse practitioner and agree with her assessment and plan. Clinical picture most consistent with ischemic colitis. Infectious etiology excluded by stool studies. Clinically improving which supports ischemic colitis. No abdominal pain or tenderness on exam today. Can advance to low residue diet as tolerated. Ultimate colonoscopy as an outpatient in 4 to 6 weeks unless symptoms recur during this admission. History of Present Illness Reason for Consultation: ? Ischemic colitis Attending Physician: Ruth Gold MD History of Present Illness Patient is a 73 yo Malawian-speaking female with PMH of HTN, orthostatic hypotension, hearing loss, pulmonary nodules who presented due to abdominal cramping and bloody diarrhea. Symptoms ongoing x 1 day. She was feeling well prior to this episode. She notes abdominal cramping that began early in the day and thought it was due to food. She notes that she had several subsequent episodes of BRBPR and diarrhea. She denies chest pain, melena, chest pain, dizziness, syncope. She notes that the pain resolved after IV fluids in the ED. She has never had a colonoscopy previously. H/H 11.0/33.8. BUN 12. Stool PCR negative. CT abdomen/pelvis read as follows: IMPRESSION: Thickening of the descending colon may represent ischemic colitis in the inferior mesenteric artery distribution or infectious/inflammatory colitis. Allergies Allergy/AdvReac Type Severity Reaction Status Date / Time Iodinated Contrast Media Allergy nausea and Verified 01/29/23 08:59 vomiting Home Medications Medication Instructions Recorded Confirmed Type atorvastatin 10 mg tablet 10 mg PO HS 02/17/20 03/22/24 History bisoprolol fumarate 5 mg tablet 5 mg PO QAM 02/17/20 03/22/24 History lisinopril 10 mg tablet 10 mg PO HS 07/28/21 03/22/24 History aspirin 81 mg capsule 81 mg PO DAILY 01/04/23 03/22/24 History ciprofloxacin HCl 500 mg tablet 500 mg PO BID 5 days #10 tabs 03/23/24 Rx metronidazole 500 mg tablet 500 mg PO BID 5 days #10 tabs 03/23/24 Rx Patient History Medical History Aortic aneurysm "told it was small, only 5mm"; f/u PSH cardio Surgical History History of cataract surgery Family History Other Family history unknown Social History Smoking Status: Never smoker Second Hand Exposure: No; Do You Dip or Chew Tobacco: No; Hx Alcohol Use: No Hx Substance Use: No Preferred Language: Malawian Communication Ability: Effective Communication Ability Comment: Requires healthcare interpreter Communication Tools: IPad and Language Line Water And Gas Helper Water And Gas Helper Required: Yes Beliefs That Will Affect Care: None marital status: / Current Living Situation: Family Current Living Situation Comment: With son and family current occupational status: retired How many Children do You have: 1 Feels Safe at Home: Yes Safety Concerns: Feels Safe At This Time Assistive Devices: None Review of Systems Constitutional: no fever and no chills Respiratory: no cough Cardiovascular: no chest pain Gastrointestinal: + abdominal pain, + diarrhea/loose stool s and + blood in stools Results & Data Vital Signs (Past 12 Hours) Vital Signs Temp Pulse Resp BP Pulse Ox O2 Del Method 03/23/24 07:57 36.8 C 62 20 121/74 97 Room Air Laboratory Results Laboratory Results - last 48 hr 03/22/24 03/22/24 03/22/24 13:05 13:50 13:56 WBC 7.92 RBC 4.14 L Hgb 12.6 Hct 37.0 MCV 89.4 MCH 30.4 MCHC 34.1 RDW Std Deviation 41.8 RDW Coeff of Bradley 12.8 Plt Count 260 MPV 9.5 Immature Gran % (Auto) 0.3 Neut % (Auto) 63.7 Lymph % (Auto) 29.0 Carver % (Auto) 6.1 Eos % (Auto) 0.4 Baso % (Auto) 0.5 Neut # (Auto) 5.05 Lymph # (Auto) 2.30 Carver # (Auto) 0.48 Eos # (Auto) 0.03 Baso # (Auto) 0.04 Immature Gran # (Auto) 0.02 Absolute Nucleated RBC Nucleated RBC % (auto) Neutrophils % (Manual) Band Neutrophils % Lymphocytes % (Manual) Prolymphocyte % Reactive Lymphs % (Man) Monocytes % (Manual) Eosinophils % (Manual) Basophils % (Manual) Metamyelocytes % (Man) Myelocytes % (Man) Promyelocytes % (Man) Blast Cells % (Manual) Plasma Cell % (Manual) Other Cells % Nucleated RBC % Neutrophils # (Manual) Band Neutrophils # Total Absolute Neuts Lymphocytes # (Manual) Prolymphocyte # Reactive Lymphs # Total Abs Lymphocytes Monocytes # (Manual) Eosinophils # (Manual) Basophils # (Manual) Metamyelocytes # (Man) Myelocytes # (Manual) Promyelocytes # (Man) Blast Cells # (Man) Plasma Cell # (Manual) Other Cells # Nucleated RBCs # (Man) Hypersegmented Neuts Hyposegmented Neuts Hypogranular Neuts Large Granular Lymphs # Lrg Granular Lymphs Hairy Cells Smudge Cells Toxic Granulation Toxic Vacuolation Dohle Bodies Jaxson Rods Platelet Estimate Hypogranular Platelets Giant Platelets Platelet Satelliting RBC Morphology Polychromasia Hypochromasia Poikilocytosis Basophilic Stippling Anisocytosis Microcytosis Macrocytosis Spherocytes Pappenheimer Bodies Sickle Cells Target Cells Tear Drop Cells Ovalocytes Stomatocytes Davis-Hetland Bodies Echinocytes Acanthocytes (Spur) Rouleaux RBC Agglutinates Schistocytes Sezary Cell Sodium 137 Potassium 3.8 Chloride 105 Carbon Dioxide 24 Anion Gap 8 BUN 18 Creatinine 0.60 Est Cr Clr Drug Dosing 74.4 Est GFR ( Amer) 103.3 Est GFR (Non-Af Amer) 89.2 BUN/Creatinine Ratio 30.0 H Glucose 104 H POC Glucose Lactate Calcium 9.6 Total Bilirubin 1.2 H AST 24 ALT 14 Alkaline Phosphatase 75 Total Protein 7.5 Albumin 4.3 Globulin 3.2 Albumin/Globulin Ratio 1.3 Lipase 13 Urine Color Yellow Urine Appearance Clear Urine pH 5.5 Ur Specific [place] 1.011 Urine Protein Negative Urine Glucose (UA) Negative Urine Ketones Negative Urine Blood 3+ H Urine Nitrite Negative Urine Bilirubin Negative Urine Urobilinogen Negative Ur Leukocyte Esterase 1+ H Urine WBC (Auto) 6-10 H Urine RBC (Auto) >20 H U Hyaline Cast (Auto) 0-2 U Epithel Cells (Auto) 0-2 Urine Bacteria (Auto) None Seen Stl C. cayetanensis PCR Not Detected Stool Rotavirus A PCR Not Detected Stl Adenov F 40/41 PCR Not Detected Stool Astrovirus (PCR) Not Detected Stool Campylobacter PCR Not Detected Stl C. diff Tox B Gene Negative Cdiff Gene Stool Cryptosporidium PCR Not Detected Stl E.coli Shiga Tox PCR Not Detected Stl Enterotoxigenic E PCR Not Detected Stool EPEC (PCR) Not Detected Stool EAEC (PCR) Not Detected Stl E. histolytica PCR Not Detected Stool Giardia Lamblia PCR Not Detected Stool Salmonella PCR Not Detected Stool Sapovirus (PCR) Not Detected Stl P. shigelloides PCR Not Detected Stl Shigella/EIEC PCR Not Detected St Y.enterocolitica PCR Not Detected Stool Vibrio (PCR) Not Detected Stl Vibrio cholerae PCR Not Detected Stl Norovirus GI/GII PCR Not Detected Blood Parasites ID 03/22/24 03/22/24 03/22/24 15:51 17:46 21:26 WBC RBC Hgb Hct MCV MCH MCHC RDW Std Deviation RDW Coeff of Bradley Plt Count MPV Immature Gran % (Auto) Neut % (Auto) Lymph % (Auto) Carver % (Auto) Eos % (Auto) Baso % (Auto) Neut # (Auto) Lymph # (Auto) Carver # (Auto) Eos # (Auto) Baso # (Auto) Immature Gran # (Auto) Absolute Nucleated RBC Nucleated RBC % (auto) Neutrophils % (Manual) Band Neutrophils % Lymphocytes % (Manual) Prolymphocyte % Reactive Lymphs % (Man) Monocytes % (Manual) Eosinophils % (Manual) Basophils % (Manual) Metamyelocytes % (Man) Myelocytes % (Man) Promyelocytes % (Man) Blast Cells % (Manual) Plasma Cell % (Manual) Other Cells % Nucleated RBC % Neutrophils # (Manual) Band Neutrophils # Total Absolute Neuts Lymphocytes # (Manual) Prolymphocyte # Reactive Lymphs # Total Abs Lymphocytes Monocytes # (Manual) Eosinophils # (Manual) Basophils # (Manual) Metamyelocytes # (Man) Myelocytes # (Manual) Promyelocytes # (Man) Blast Cells # (Man) Plasma Cell # (Manual) Other Cells # Nucleated RBCs # (Man) Hypersegmented Neuts Hyposegmented Neuts Hypogranular Neuts Large Granular Lymphs # Lrg Granular Lymphs Hairy Cells Smudge Cells Toxic Granulation Toxic Vacuolation Dohle Bodies Jaxson Rods Platelet Estimate Hypogranular Platelets Giant Platelets Platelet Satelliting RBC Morphology Polychromasia Hypochromasia Poikilocytosis Basophilic Stippling Anisocytosis Microcytosis Macrocytosis Spherocytes Pappenheimer Bodies Sickle Cells Target Cells Tear Drop Cells Ovalocytes Stomatocytes Davis-Hetland Bodies Echinocytes Acanthocytes (Spur) Rouleaux RBC Agglutinates Schistocytes Sezary Cell Sodium Potassium Chloride Carbon Dioxide Anion Gap BUN Creatinine Est Cr Clr Drug Dosing Est GFR ( Amer) Est GFR (Non-Af Amer) BUN/Creatinine Ratio Glucose POC Glucose 95 Lactate 2.1 H* 1.6 Calcium Total Bilirubin AST ALT Alkaline Phosphatase Total Protein Albumin Globulin Albumin/Globulin Ratio Lipase Urine Color Urine Appearance Urine pH Ur Specific [place] Urine Protein Urine Glucose (UA) Urine Ketones Urine Blood Urine Nitrite Urine Bilirubin Urine Urobilinogen Ur Leukocyte Esterase Urine WBC (Auto) Urine RBC (Auto) U Hyaline Cast (Auto) U Epithel Cells (Auto) Urine Bacteria (Auto) Stl C. cayetanensis PCR Stool Rotavirus A PCR Stl Adenov F 40/41 PCR Stool Astrovirus (PCR) Stool Campylobacter PCR Stl C. diff Tox B Gene Stool Cryptosporidium PCR Stl E.coli Shiga Tox PCR Stl Enterotoxigenic E PCR Stool EPEC (PCR) Stool EAEC (PCR) Stl E. histolytica PCR Stool Giardia Lamblia PCR Stool Salmonella PCR Stool Sapovirus (PCR) Stl P. shigelloides PCR Stl Shigella/EIEC PCR St Y.enterocolitica PCR Stool Vibrio (PCR) Stl Vibrio cholerae PCR Stl Norovirus GI/GII PCR Blood Parasites ID 03/23/24 03/23/24 07:05 07:33 WBC Cancelled 5.30 RBC Cancelled 3.71 L Hgb Cancelled 11.0 L Hct Cancelled 33.8 L MCV Cancelled 91.1 MCH Cancelled 29.6 MCHC Cancelled 32.5 RDW Std Deviation Cancelled 42.3 RDW Coeff of Bradley Cancelled 12.9 Plt Count Cancelled 194 MPV Cancelled 9.3 L Immature Gran % (Auto) Cancelled 0.4 Neut % (Auto) Cancelled 50.1 Lymph % (Auto) Cancelled 34.5 Carver % (Auto) Cancelled 10.6 Eos % (Auto) Cancelled 3.8 Baso % (Auto) Cancelled 0.6 Neut # (Auto) Cancelled 2.66 Lymph # (Auto) Cancelled 1.83 Carver # (Auto) Cancelled 0.56 Eos # (Auto) Cancelled 0.20 Baso # (Auto) Cancelled 0.03 Immature Gran # (Auto) Cancelled 0.02 Absolute Nucleated RBC Cancelled Nucleated RBC % (auto) Cancelled Neutrophils % (Manual) Cancelled Band Neutrophils % Cancelled Lymphocytes % (Manual) Cancelled Prolymphocyte % Cancelled Reactive Lymphs % (Man) Cancelled Monocytes % (Manual) Cancelled Eosinophils % (Manual) Cancelled Basophils % (Manual) Cancelled Metamyelocytes % (Man) Cancelled Myelocytes % (Man) Cancelled Promyelocytes % (Man) Cancelled Blast Cells % (Manual) Cancelled Plasma Cell % (Manual) Cancelled Other Cells % Cancelled Nucleated RBC % Cancelled Neutrophils # (Manual) Cancelled Band Neutrophils # Cancelled Total Absolute Neuts Cancelled Lymphocytes # (Manual) Cancelled Prolymphocyte # Cancelled Reactive Lymphs # Cancelled Total Abs Lymphocytes Cancelled Monocytes # (Manual) Cancelled Eosinophils # (Manual) Cancelled Basophils # (Manual) Cancelled Metamyelocytes # (Man) Cancelled Myelocytes # (Manual) Cancelled Promyelocytes # (Man) Cancelled Blast Cells # (Man) Cancelled Plasma Cell # (Manual) Cancelled Other Cells # Cancelled Nucleated RBCs # (Man) Cancelled Hypersegmented Neuts Cancelled Hyposegmented Neuts Cancelled Hypogranular Neuts Cancelled Large Granular Lymphs Cancelled # Lrg Granular Lymphs Cancelled Hairy Cells Cancelled Smudge Cells Cancelled Toxic Granulation Cancelled Toxic Vacuolation Cancelled Dohle Bodies Cancelled Jaxson Rods Cancelled Platelet Estimate Cancelled Hypogranular Platelets Cancelled Giant Platelets Cancelled Platelet Satelliting Cancelled RBC Morphology Cancelled Polychromasia Cancelled Hypochromasia Cancelled Poikilocytosis Cancelled Basophilic Stippling Cancelled Anisocytosis Cancelled Microcytosis Cancelled Macrocytosis Cancelled Spherocytes Cancelled Pappenheimer Bodies Cancelled Sickle Cells Cancelled Target Cells Cancelled Tear Drop Cells Cancelled Ovalocytes Cancelled Stomatocytes Cancelled Davis-Hetland Bodies Cancelled Echinocytes Cancelled Acanthocytes (Spur) Cancelled Rouleaux Cancelled RBC Agglutinates Cancelled Schistocytes Cancelled Sezary Cell Cancelled Sodium 142 Potassium 3.8 Chloride 111 H Carbon Dioxide 25 Anion Gap 6 BUN 12 Creatinine 0.55 L Est Cr Clr Drug Dosing 81.6 Est GFR ( Amer) 106.3 Est GFR (Non-Af Amer) 91.8 BUN/Creatinine Ratio 21.8 H Glucose 95 POC Glucose Lactate Calcium 8.7 Total Bilirubin AST ALT Alkaline Phosphatase Total Protein Albumin Globulin Albumin/Globulin Ratio Lipase Urine Color Urine Appearance Urine pH Ur Specific [place] Urine Protein Urine Glucose (UA) Urine Ketones Urine Blood Urine Nitrite Urine Bilirubin Urine Urobilinogen Ur Leukocyte Esterase Urine WBC (Auto) Urine RBC (Auto) U Hyaline Cast (Auto) U Epithel Cells (Auto) Urine Bacteria (Auto) Stl C. cayetanensis PCR Stool Rotavirus A PCR Stl Adenov F 40/41 PCR Stool Astrovirus (PCR) Stool Campylobacter PCR Stl C. diff Tox B Gene Stool Cryptosporidium PCR Stl E.coli Shiga Tox PCR Stl Enterotoxigenic E PCR Stool EPEC (PCR) Stool EAEC (PCR) Stl E. histolytica PCR Stool Giardia Lamblia PCR Stool Salmonella PCR Stool Sapovirus (PCR) Stl P. shigelloides PCR Stl Shigella/EIEC PCR St Y.enterocolitica PCR Stool Vibrio (PCR) Stl Vibrio cholerae PCR Stl Norovirus GI/GII PCR Blood Parasites ID Cancelled PG Care Time/CCT Total # of Minutes Spent Total Time Spent with Patient: Total time spent is greater than 50% in coordination of care (as documented) at patient's floor/unit and/or counseling patient: Coding Level of Care Code 32817 INT INP/OBS CARE MIN Diagnoses Ischemic colitis K55.9
--- NOTE | 2024-03-23 14:52 | Discharge Summary ---
Date of Service March 23, 2024 Admission HPI Per Admitting Provider Lolis is a 73-year-old female with past medical history of hypertension, orthostatic hypotension, hearing loss, pulmonary nodules, and colitis who is exclusively Samoan speaker with whom history is collected with the assistance of video translation services who presents with cramping and diarrhea of 1 day. Bloody diarrhea since yesterday. Lolis reports that she was in her usual state of health until earlier this afternoon. She reports she had cramping earlier this afternoon which she attributes to possibly eating some bad yogurt. After that she had a couple of episodes of diarrhea which had bright red blood. No melena. She denied chest pain, chest pressure, lightheadedness, dizziness, syncope, presyncope she does feel that the diarrhea is improving, last bowel movement had a little bit of bright red blood in it. Her pain has completely resolved after getting IV fluids. She is hungry and slightly thirsty. She has not had fever chills or sweats. She reports she has a past medical history of high blood pressure, high heart rate treated with aspirin/atorvastatin/isinopril/bisoprolol. She did take her bisoprolol this morning, she takes her other medications in the evening. She currently feels normal and at her usual state of health, but is concerned about the bleeding. She does not use tobacco products, and does not drink alcohol. Full code. No other questions at bedside. Admission Exam (Per Admitting) Constitutional The patient is awake, alert and oriented 3, well developed and well nourished, normocephalic and atraumatic, lying in bed and in no acute distress. HEENT--PERRL, EOMI, mucous membranes and oropharynx mildly dry Neck--supple. No JVD. No bruits. Thyroid normal, trachea midline, no adenopathy. Heart--normal S1 and S2. No murmurs, rubs or gallops. Lungs--clear bilaterally, no respiratory distress, no accessory muscle use. Abdomen--normal bowel sounds and soft. Extremities--no cyanosis or clubbing. No edema. Dermatologic--normal skin turgor, normal color, no abnormal lymph nodes, no rash. Neurologic--cranial nerves II through XII grossly intact. Rheumatologic--normal range of motion. Psychiatric--normal affect. Discharge Data Consultations 03/22/24 15:32 ED Decision to Admit Stat 03/23/24 09:00 Consult Gastroenterology Routine Hospital Course (1) Colitis: -Likely acute infectious colitis - CTA/P: descending colon possibly representing ischemic colitis and inferior MCA distribution versus infectious/inflammatory colitis. CT was performed in ER without contrast due to patient reports of severe contrast allergy. Stool bio fire is negative. Patient attributes initial symptoms to suspecting that she had bad yogurt, cramping and diarrhea started with normal bowel movements and then included diarrhea that then continued with blood later in the day. Improved following fluids, pain resolved Empiric Zosyn continued for GI coverage Patient is not septic or hemodynamically unstable. She is not hypotensive or tachycardic. She does not have a leukocytosis. She is not anemic. BUN is not markedly elevated. Lactate minimally elevated, repeat pending. She has no high risk features on reassessment Will continue observation, supportive care with IV antibiotics and fluids. Anticoagulation not recommended at time of admission. GI consulted No history of colorectal cancer in patient or her family. She has never had a colonoscopy. She is not anemic or microcytic. (2) HTN (hypertension): Atorvastatin continued. Lisinopril held. (3) Aortic aneurysm: Followed as outpatient. No chest pain/shoulder blade pain. She reports that she had an echo of this around 6 months ago which was similar to her last echo and did not show enlargement. Last review of 2022 echo with dilated aortic root 3.8 cm, stable compared to prior Plan Stable issues: Pulmonary nodule: Follows with pulmonary as outpatient. Right midlung nodule density. No ongoing need for screening, low risk, no tobacco history. May continue to follow-up as needed DVT prophylaxis: SCDs, Lovenox held for hematochezia Disposition: Medical/surgical Diet: N.p.o. Coding Level of Care Code 71315 INP/OBS DISCH >30 MIN Diagnoses Colitis K52.9 HTN (hypertension) I10 Hypertension type: unspecified Aortic aneurysm I71.9
--- NOTE | 2024-03-23 14:57 | Hospitalist Progress Note ---
Date of Service March 23, 2024 Assessment & Plan (1) Colitis: Plan: -Admitted with abd pain and some blood in stool - Patient attributes initial symptoms to suspecting that she had bad yogurt, cramping and diarrhea started with normal bowel movements and then included diarrhea that then continued with blood later in the day. -Differentials include infectious colitis, ischemic colitis. - CTA/P showed evidence of descending colon possibly representing ischemic colitis and inferior MCA distribution versus infectious/inflammatory colitis. CT was performed in ER without contrast due to patient reports of severe contrast allergy. Stool bio fire is negative. Lactic acid also wnl Empiric Zosyn continued for GI coverage -She has never had a colonoscopy. -GI on consult, appreciate recs (2) HTN (hypertension): Plan: Atorvastatin continued. Lisinopril held. (3) Aortic aneurysm: Plan: Followed as outpatient. No chest pain/shoulder blade pain. She reports that she had an echo of this around 6 months ago which was similar to her last echo and did not show enlargement. Last review of 2022 echo with dilated aortic root 3.8 cm, stable compared to prior Plan Stable issues: Pulmonary nodule: Follows with pulmonary as outpatient. Right midlung nodule density. No ongoing need for screening, low risk, no tobacco history. May continue to follow-up as needed DVT prophylaxis: SCDs, Lovenox held for hematochezia Disposition: Medical/surgical Diet: N.p.o. Admission and Anticipated Discharge Date Admission Date: March 22, 2024 Subjective patient seen and examined, said abd pain is better Review of Systems Review of Systems: All systems reviewed are negative, apart from the ones contained in the history. Physical Exam Physical Exam: The patient is awake, alert and oriented 3, well developed and well nourished, normocephalic and atraumatic, lying in bed and in no acute distress. HEENT--PERRL, EOMI, mucous membranes and oropharynx mildly dry Neck--supple. No JVD. No bruits. Thyroid normal, trachea midline, no adenopathy. Heart--normal S1 and S2. No murmurs, rubs or gallops. Lungs--clear bilaterally, no respiratory distress, no accessory muscle use. Abdomen--normal bowel sounds and soft. Extremities--no cyanosis or clubbing. No edema. Dermatologic--normal skin turgor, normal color, no abnormal lymph nodes, no rash. Neurologic--cranial nerves II through XII grossly intact. Rheumatologic--normal range of motion. Psychiatric--normal affect. Results & Data Results & Data Vital Signs (Past 12 Hours) Vital Signs Temp Pulse Resp BP Pulse Ox O2 Del Method 03/23/24 07:57 98.2 F 62 20 121/74 97 Room Air PG Care Time/CCT Total # of Minutes Spent Total Time Spent with Patient: Total time spent is greater than 50% in coordination of care (as documented) at patient's floor/unit and/or counseling patient: Coding Level of Care Code 23773 SUB INP/OBS CARE 2/35MIN Diagnoses Colitis K52.9 HTN (hypertension) I10 Hypertension type: unspecified Aortic aneurysm I71.9 Time Spent (min) 35 (2) HTN (hypertension) Hypertension type: unspecified Qualified Code(s): I10 - Essential (primary) hypertension
[2024-03-23 21:11] VITALS: PULSE 60
--- NOTE | 2024-03-24 06:16 | Electrocardiogram Report ---
Test Reason : Blood Pressure : */* mmHG Vent. Rate : 80 BPM Atrial Rate : 80 BPM P-R Int : 204 ms QRS Dur : 92 ms QT Int : 388 ms P-R-T Axes : 38 -22 -17 degrees QTcB Int : 447 ms Normal sinus rhythm Moderate voltage criteria for LVH, may be normal variant ( R in aVL , Mateus product ) Borderline ECG When compared with ECG of 18-Sep-2021 10:02, Nonspecific T wave abnormality now evident in Anterior leads Confirmed by Arnaldo Carson [id number] on 03/24/2024 6:15:37 AM Referred By: Confirmed By: Arnaldo Carson
[2024-03-24 07:41] LABS: Basophils # (auto) 0.05 K/uL (0.00-0.20); Eosinophils # (auto) 0.29 K/uL (0.00-0.50); Eosinophils % (auto) 5.6 %; Hematocrit (blood only) 31.7 % (37.0-47.0); Hemoglobin 10.8 g/dl (12.0-16.0); Immature Granulocytes # (auto) 0.01 K/uL (0.01-0.20); Immature Granulocytes % (auto) 0.2 %; Lymphocytes # (auto) 1.97 K/uL (1.20-3.40); Lymphocytes % (auto) 37.7 %; Mean Corpuscular Hemoglobin 30.5 pg (25.0-34.0); Mean Corpuscular Hgb Conc 34.1 g/dL (32.0-36.0); Mean Corpuscular Volume 89.5 fL (80.0-100.0); Mean Platelet Volume 9.8 fL (9.4-12.4); Monocytes # (auto) 0.47 K/uL (0.11-0.59); Neutrophils # (auto) 2.43 K/uL (1.40-6.50); Neutrophils % (auto) 46.5 %; Platelet Count 204 K/uL (130-400); RDW Coefficient of Variation 12.9 % (11.5-14.5); RDW Standard Deviation 42.4 fL (36.4-46.3); Red Blood Count 3.54 M/uL (4.20-5.40); White Blood Count 5.22 K/ul (4.8-10.8)
[2024-03-24 08:03] VITALS: BP 146/75; RESP 18; TEMP 98.2; O2SAT 97
[2024-03-24 08:11] LABS: BUN Creatinine Ratio 13.6 (10-20); Calcium 8.7 mg/dl (8.6-10.3); Creatinine Clr Calc Pharmacy 76.1 ml/min; Est GFR (African American) 103.9 ml/min; Est GFR (Non-African American) 89.7 ml/min; Potassium 3.4 mmol/L (3.5-5.1)
[2024-03-24] MEDS: lisinopril 10 MG TAB PO SCH (09:44)
--- NOTE | 2024-03-24 11:58 | Discharge Summary ---
Date of Service March 24, 2024 Admission HPI Per Admitting Provider Lolis is a 73-year-old female with past medical history of hypertension, orthostatic hypotension, hearing loss, pulmonary nodules, and colitis who is exclusively Kittitian speaker with whom history is collected with the assistance of video translation services who presents with cramping and diarrhea of 1 day. Bloody diarrhea since yesterday. Lolis reports that she was in her usual state of health until earlier this afternoon. She reports she had cramping earlier this afternoon which she attributes to possibly eating some bad yogurt. After that she had a couple of episodes of diarrhea which had bright red blood. No melena. She denied chest pain, chest pressure, lightheadedness, dizziness, syncope, presyncope she does feel that the diarrhea is improving, last bowel movement had a little bit of bright red blood in it. Her pain has completely resolved after getting IV fluids. She is hungry and slightly thirsty. She has not had fever chills or sweats. She reports she has a past medical history of high blood pressure, high heart rate treated with aspirin/atorvastatin/isinopril/bisoprolol. She did take her bisoprolol this morning, she takes her other medications in the evening. She currently feels normal and at her usual state of health, but is concerned about the bleeding. She does not use tobacco products, and does not drink alcohol. Full code. No other questions at bedside. Admission Exam (Per Admitting) Constitutional The patient is awake, alert and oriented 3, well developed and well nourished, normocephalic and atraumatic, lying in bed and in no acute distress. HEENT--PERRL, EOMI, mucous membranes and oropharynx mildly dry Neck--supple. No JVD. No bruits. Thyroid normal, trachea midline, no adenopathy. Heart--normal S1 and S2. No murmurs, rubs or gallops. Lungs--clear bilaterally, no respiratory distress, no accessory muscle use. Abdomen--normal bowel sounds and soft. Extremities--no cyanosis or clubbing. No edema. Dermatologic--normal skin turgor, normal color, no abnormal lymph nodes, no rash. Neurologic--cranial nerves II through XII grossly intact. Rheumatologic--normal range of motion. Psychiatric--normal affect. Discharge Data Consultations 03/22/24 15:32 ED Decision to Admit Stat 03/23/24 09:00 Consult Gastroenterology Routine Hospital Course (1) Colitis: -Likely ischemic colitis - CTA/P: descending colon possibly representing ischemic colitis and inferior MCA distribution versus infectious/inflammatory colitis. CT was performed in ER without contrast due to patient reports of severe contrast allergy. Stool bio fire is negative. Patient attributes initial symptoms to suspecting that she had bad yogurt, cramping and diarrhea started with normal bowel movements and then included diarrhea that then continued with blood later in the day. Improved following fluids, pain resolved Evaluated by GI, plan is outpatient colonoscopy in 3 weeks (2) HTN (hypertension): Atorvastatin continued. Lisinopril held. (3) Aortic aneurysm: Followed as outpatient. No chest pain/shoulder blade pain. She reports that she had an echo of this around 6 months ago which was similar to her last echo and did not show enlargement. Last review of 2022 echo with dilated aortic root 3.8 cm, stable compared to prior Plan Stable issues: Pulmonary nodule: Follows with pulmonary as outpatient. Right midlung nodule density. No ongoing need for screening, low risk, no tobacco history. May continue to follow-up as needed DVT prophylaxis: SCDs, Lovenox held for hematochezia Disposition: Medical/surgical Diet: N.p.o. Coding Level of Care Code 67497 INP/OBS DISCH >30 MIN Diagnoses Colitis K52.9 HTN (hypertension) I10 Hypertension type: unspecified Aortic aneurysm I71.9 Time Spent (min) 35
[2024-03-24] MEDS ORDERED: lisinopril 10 MG TAB PO SCH (21:00)
== END 2024-03-24 11:55 | disposition home or self-care (01) | DRG 394 ==
LOC: ED 12:42 → SUATTDRO 17:15 → EDINP 17:15 → 3W 20:37